=== PATIENT | female | born 1980 | race Two or more races ===

== ENCOUNTER 2021-05-22 08:51 | Emergency (ER) | payer OTHER ==
[~2021-05-22] VITALS: Ht 162.6 cm; Wt 90.9 kg
[2021-05-22 10:25] LABS: BASOPHILS % (AUTO) 0.2 % (0.0-2.0); EOSINOPHILS % (AUTO) 1.4 % (1.0-6.0); HEMATOCRIT 38.8 % (36-46); HEMOGLOBIN 12.8 g/dL (12.0-16.0); MEAN CORPUSCULAR HEMOGLOBIN 28.6 pg (26.0-34.0); MEAN CORPUSCULAR HGB CONC 32.9 G/dL (31.0-37.0); MEAN CORPUSCULAR VOLUME 87 fL (80-100); MONOCYTES # (AUTO) 0.6 K/uL (0.1-1.0); MONOCYTES % (AUTO) 9.9 % (2.0-9.0); NEUTROPHILS # (AUTO) 3.1 K/uL (1.8-7.7); NEUTROPHILS % (AUTO) 54.5 % (40.0-70.0); PLATELET COUNT (AUTO) 189 K/uL (150-450); RED BLOOD CELL COUNT(AUTO) 4.47 MIL/uL (4.00-5.20); RED CELL DISTRIBUTION WIDTH 14.6 % (11.5-14.5)
[2021-05-22 10:34] LABS: ANION GAP 11 mmol/L (8-16); CARBON DIOXIDE 25 mmol/L (22-29); CHLORIDE 101 mmol/L (98-107); GLOMERULAR FILTR. RATE CALC > 60 mL/min (>60); GLUCOSE,RANDOM 80 mg/dL (70-110); POTASSIUM 3.9 mmol/L (3.5-5.1); SODIUM SERUM 137 mmol/L (136-145); UREA NITROGEN, BLOOD 11 mg/dL (7-18)
[2021-05-22 10:40] LABS: ALANINE AMINOTRANSFERASE 28 U/L (12-78); ALBUMIN 3.7 g/dL (3.4-5.0); ALKALINE PHOSPHATASE 87 U/L (46-116); ASPARTATE AMINOTRANSFERASE 23 U/L (15-37); BILIRUBIN,TOTAL 0.4 mg/dL (0.1-1.0); TOTAL PROTEIN, SERUM 7.5 g/dL (6.4-8.2)
[2021-05-22 14:12] VITALS: BP 122/76
== END 2021-05-22 14:14 | disposition home or self-care (01) ==
LOC: EMS 08:58
DX: O26.891 Other specified pregnancy related conditions, first trimester (principal); R10.9 Unspecified abdominal pain; Z3A.01 Less than 8 weeks gestation of pregnancy
CPT/HCPCS: 76801; 80053; 85025; 99285

== ENCOUNTER 2021-06-25 19:13 | Emergency (ER) | payer OTHER ==
[~2021-06-25] VITALS: Ht 160 cm; Wt 91.8 kg
[2021-06-25 19:39] LABS: BASOPHILS % (AUTO) 0.5 % (0.0-2.0); EOSINOPHILS % (AUTO) 1.2 % (1.0-6.0); LYMPHOCYTES # (AUTO) 2.8 K/uL (1.0-4.8); LYMPHOCYTES % (AUTO) 36.6 % (22.0-44.0); MEAN CORPUSCULAR HEMOGLOBIN 28.3 pg (26.0-34.0); MEAN CORPUSCULAR HGB CONC 32.5 G/dL (31.0-37.0); MEAN CORPUSCULAR VOLUME 87 fL (80-100); MONOCYTES # (AUTO) 0.6 K/uL (0.1-1.0); MONOCYTES % (AUTO) 8.6 % (2.0-9.0); NEUTROPHILS % (AUTO) 53.1 % (40.0-70.0); PLATELET COUNT (AUTO) 209 K/uL (150-450)
[2021-06-25 19:49] LABS: CALCIUM, TOTAL 8.8 mg/dL (8.8-10.5); CREATININE 1.07 mg/dL (0.60-1.30); POTASSIUM 3.8 mmol/L (3.5-5.1)
[2021-06-25 19:54] LABS: ALBUMIN 3.9 g/dL (3.4-5.0); BILIRUBIN,TOTAL 0.2 mg/dL (0.1-1.0); TOTAL PROTEIN, SERUM 8.1 g/dL (6.4-8.2)
[2021-06-25 20:23] LABS: D-DIMER 0.38 mg/L FEU (0.00-0.50); PROTHROMBIN TIME 10.3 SEC (9.4-11.6)
[2021-06-25 20:32] LABS: APPEARANCE,URINE HAZY (CLEAR); BILIRUBIN,URINE NEGATIVE (NEGATIVE); GLUCOSE, URINE (UA) NEGATIVE (NEGATIVE); KETONES,URINE NEGATIVE (NEGATIVE); LEUKOCYTE ESTERASE ,URINE NEGATIVE (NEGATIVE); NITRATE,URINE NEGATIVE (NEGATIVE); OCCULT BLOOD,URINE NEGATIVE (NEGATIVE); PH,URINE 5.5 (5.0-8.0); PROTEIN,URINE NEGATIVE (NEGATIVE); SPECIFIC GRAVITIY, URINE 1.023 (1.003-1.030); UROBILINOGEN,URINE <=1.0 mg/dL (<=1.0)
[2021-06-25] MEDS ORDERED: SODIUM CHLORIDE 0.9% 1,000 ML IV ONE (20:45)
[2021-06-25 22:13] VITALS: BP 138/72
== END 2021-06-25 22:00 | disposition home or self-care (01) ==
LOC: EMS 19:14
DX: O99.281 Endocrine, nutritional and metabolic diseases complicating pregnancy, first trimester (principal); O26.891 Other specified pregnancy related conditions, first trimester; E86.0 Dehydration; R42 Dizziness and giddiness; Z3A.11 11 weeks gestation of pregnancy
CPT/HCPCS: 36415; 71045; 80053; 81003; 82550; 83880; 84484; 84703; 85025; 85379; 85610; 85730; 93005; 96360; 99285; J7030

== ENCOUNTER 2021-07-05 18:12 | Emergency (ER) | payer OTHER ==
[~2021-07-05] VITALS: Ht 164.8 cm; Wt 91.8 kg
[2021-07-05] MEDS ORDERED: IBUP-2070 PO (18:58)
[2021-07-05] MEDS ORDERED: ACET-3385 PO (18:58)
[2021-07-05] MEDS ORDERED: AMOX1TAB16 PO (18:58)
[2021-07-05] MEDS ORDERED: ACETAMINOPHEN 500 MG TABLET PO ONE (19:00)
[2021-07-05] MEDS ORDERED: KETOROLAC TROMETHAMINE 30 MG/ML VIAL IM ONE (19:00)
[2021-07-05] MEDS ORDERED: AMOX TR/POT CLAV 875 MG/125 MG TABLET PO ONE (19:00)
[2021-07-05 19:45] VITALS: BP 139/82
== END 2021-07-05 20:00 | disposition home or self-care (01) ==
LOC: EMS 18:19
DX: K08.89 Other specified disorders of teeth and supporting structures (principal); Z79.899 Other long term (current) drug therapy
CPT/HCPCS: 96372; 99283; J1885

== ENCOUNTER 2021-10-30 16:49 | Emergency (ER) | payer OTHER ==
[~2021-10-30 16:49] MED LIST: ACET-3385 PO; AMOX1TAB16 PO; IBUP-2070 PO
== END 2021-10-30 19:17 | disposition left against medical advice (07) ==
LOC: EMS 17:50
DX: Z53.21 Procedure and treatment not carried out due to patient leaving prior to being seen by health care provider (principal)

== ENCOUNTER 2021-12-28 10:13 | Emergency (ER) | payer OTHER ==
[~2021-12-28] VITALS: Ht 167.6 cm; Wt 86.4 kg
[2021-12-28] MEDS ORDERED: IBUPROFEN 600 MG TABLET PO ONE (12:15)
[2021-12-28 12:59] VITALS: BP 133/88
[2021-12-28] MEDS ORDERED: NAPR-1025 PO (13:07)
== END 2021-12-28 13:45 | disposition home or self-care (01) ==
LOC: EMS 10:29
DX: M77.32 Calcaneal spur, left foot (principal); M77.31 Calcaneal spur, right foot
CPT/HCPCS: 99283

== ENCOUNTER 2022-09-13 20:21 | Emergency (ER) | payer OTHER ==
[~2022-09-13] VITALS: Ht 172.7 cm; Wt 100.0 kg
[~2022-09-13 20:21] MED LIST changes: -AMOX1TAB16 PO; +IBUP-1492 PO; -IBUP-2070 PO; +NAPR-1025 PO
[2022-09-13 21:06] LABS: BASOPHILS % (AUTO) 0.4 % (0.0-2.0); EOSINOPHILS % (AUTO) 1.6 % (1.0-6.0); HEMATOCRIT 39.5 % (36-46); HEMOGLOBIN 12.8 g/dL (12.0-16.0); LYMPHOCYTES # (AUTO) 2.9 K/uL (1.0-4.8); LYMPHOCYTES % (AUTO) 33.5 % (22.0-44.0); MEAN CORPUSCULAR HEMOGLOBIN 28.7 pg (26.0-34.0); MEAN CORPUSCULAR HGB CONC 32.5 G/dL (31.0-37.0); MEAN CORPUSCULAR VOLUME 88 fL (80-100); MONOCYTES # (AUTO) 0.7 K/uL (0.1-1.0); MONOCYTES % (AUTO) 7.6 % (2.0-9.0); NEUTROPHILS % (AUTO) 56.9 % (40.0-70.0); PLATELET COUNT (AUTO) 213 K/uL (150-450); RED BLOOD CELL COUNT(AUTO) 4.48 MIL/uL (4.00-5.20); RED CELL DISTRIBUTION WIDTH 14.4 % (11.5-14.5)
[2022-09-13 21:18] LABS: ANION GAP 9 mmol/L (8-16); CALCIUM, TOTAL 8.7 mg/dL (8.8-10.5); CARBON DIOXIDE 27 mmol/L (22-29); CHLORIDE 104 mmol/L (98-107); CREATININE 0.88 mg/dL (0.60-1.30); GLOMERULAR FILTR. RATE CALC > 60 mL/min (>60); GLUCOSE,RANDOM 110 mg/dL (70-110); POTASSIUM 3.9 mmol/L (3.5-5.1); SODIUM SERUM 140 mmol/L (136-145)
[2022-09-13 21:24] LABS: ALANINE AMINOTRANSFERASE 19 U/L (12-78); ALBUMIN 3.5 g/dL (3.4-5.0); ALKALINE PHOSPHATASE 109 U/L (46-116); ASPARTATE AMINOTRANSFERASE 21 U/L (15-37); BILIRUBIN,TOTAL 0.1 mg/dL (0.1-1.0); LIPASE 165 U/L (73-393); TOTAL PROTEIN, SERUM 7.5 g/dL (6.4-8.2)
[2022-09-13 21:27] LABS: APPEARANCE,URINE CLEAR (CLEAR); BILIRUBIN,URINE NEGATIVE (NEGATIVE); GLUCOSE, URINE (UA) NEGATIVE (NEGATIVE); KETONES,URINE NEGATIVE (NEGATIVE); LEUKOCYTE ESTERASE ,URINE NEGATIVE (NEGATIVE); NITRATE,URINE NEGATIVE (NEGATIVE); OCCULT BLOOD,URINE NEGATIVE (NEGATIVE); PROTEIN,URINE NEGATIVE (NEGATIVE); UROBILINOGEN,URINE <=1.0 mg/dL (<=1.0)
[2022-09-13] MEDS ORDERED: MAG30ORA11 PO (22:22)
[2022-09-13] MEDS ORDERED: ACET-66 PO (22:22)
[2022-09-13] MEDS ORDERED: ACETAMINOPHEN 500 MG TABLET PO ONE (22:30)
[2022-09-13] MEDS ORDERED: MAG HYDROX/AL HYDROX/SIMETH ES 30 ML SUSPENSION UDCUP PO ONE (22:30)
[2022-09-13 22:32] VITALS: BP 126/77
== END 2022-09-13 22:32 | disposition home or self-care (01) ==
LOC: EMS 20:22
DX: K52.9 Noninfective gastroenteritis and colitis, unspecified (principal); Z98.890 Other specified postprocedural states
CPT/HCPCS: 80053; 81003; 83690; 84703; 85025; 99283

== ENCOUNTER 2023-04-22 19:42 | Emergency (ER) | payer OTHER ==
[~2023-04-22] VITALS: Ht 157.5 cm; Wt 97.7 kg
[~2023-04-22 19:42] MED LIST changes: +ACET-66 PO; +MAG30ORA11 PO
[2023-04-22] MEDS ORDERED: KETOROLAC TROMETHAMINE 30 MG/ML VIAL IVP ONE (23:45)
[2023-04-22] MEDS ORDERED: SODIUM CHLORIDE 0.9% 1,000 ML IV ONE (23:45)
[2023-04-22] MEDS ORDERED: ONDANSETRON HCL 4 MG/2 ML VIAL IVP ONE (23:45)
[2023-04-23 01:05] LABS: COVID AG,FIA SOURCE NASAL SWAB
[2023-04-23 01:33] LABS: APPEARANCE,URINE CLEAR (CLEAR); BILIRUBIN,URINE NEGATIVE (NEGATIVE); COLOR,URINE COLORLESS (YELLOW); GLUCOSE, URINE (UA) NEGATIVE (NEGATIVE); KETONES,URINE NEGATIVE (NEGATIVE); LEUKOCYTE ESTERASE ,URINE NEGATIVE (NEGATIVE); NITRATE,URINE NEGATIVE (NEGATIVE); OCCULT BLOOD,URINE TRACE (NEGATIVE); PH,URINE 5.5 (5.0-8.0); PROTEIN,URINE NEGATIVE (NEGATIVE); SPECIFIC GRAVITIY, URINE 1.017 (1.003-1.030); UROBILINOGEN,URINE <=1.0 mg/dL (<=1.0)
[2023-04-23 01:36] LABS: SARS-COV2 (COVID) ANTIGEN,FIA Negative (Negative)
[2023-04-23 01:37] LABS: INFLUENZA TYPE A NEGATIVE FOR TYPE A (NEGATIVE); INFLUENZA TYPE B NEGATIVE FOR TYPE B (NEGATIVE)
[2023-04-23 01:43] LABS: BASOPHILS % (AUTO) 0.4 % (0.0-2.0); EOSINOPHILS % (AUTO) 2.7 % (1.0-6.0); HEMATOCRIT 38.6 % (36-46); HEMOGLOBIN 12.7 g/dL (12.0-16.0); LYMPHOCYTES # (AUTO) 3.1 K/uL (1.0-4.8); LYMPHOCYTES % (AUTO) 35.3 % (22.0-44.0); MEAN CORPUSCULAR HEMOGLOBIN 28.6 pg (26.0-34.0); MEAN CORPUSCULAR HGB CONC 32.9 G/dL (31.0-37.0); MEAN CORPUSCULAR VOLUME 87 fL (80-100); MONOCYTES # (AUTO) 0.7 K/uL (0.1-1.0); MONOCYTES % (AUTO) 8.3 % (2.0-9.0); NEUTROPHILS # (AUTO) 4.7 K/uL (1.8-7.7); NEUTROPHILS % (AUTO) 53.3 % (40.0-70.0); PLATELET COUNT (AUTO) 239 K/uL (150-450); RED BLOOD CELL COUNT(AUTO) 4.44 MIL/uL (4.00-5.20); RED CELL DISTRIBUTION WIDTH 14.5 % (11.5-14.5); WHITE BLOOD COUNT (AUTO) 8.9 K/uL (4.5-11.0)
[2023-04-23 01:44] LABS: RESPIRATORY SYNCYTIAL VIRS,FIA NEGATIVE (Negative)
[2023-04-23 01:54] LABS: ANION GAP 9 mmol/L (8-16); CALCIUM, TOTAL 9.2 mg/dL (8.8-10.5); CARBON DIOXIDE 28 mmol/L (22-29); CHLORIDE 99 mmol/L (98-107); GLOMERULAR FILTR. RATE CALC > 60 mL/min (>60); GLUCOSE,RANDOM 81 mg/dL (70-110); POTASSIUM 3.8 mmol/L (3.5-5.1); SODIUM SERUM 136 mmol/L (136-145); UREA NITROGEN, BLOOD 13 mg/dL (7-18)
[2023-04-23 01:59] LABS: BACTERIA,URINE None Seen /HPF (None Seen); RBC,URINE 0-2 /HPF (0-2); SQUAMOUS EPITHELIAL CELL,UR Rare /LPF (None Seen); WBC,URINE None Seen /HPF (0-5)
[2023-04-23 02:01] LABS: ALANINE AMINOTRANSFERASE 23 U/L (12-78); ALBUMIN 4.1 g/dL (3.4-5.0); ALKALINE PHOSPHATASE 142 U/L (46-116); ASPARTATE AMINOTRANSFERASE 23 U/L (15-37); BILIRUBIN,TOTAL 0.2 mg/dL (0.1-1.0); LIPASE 75 U/L (16-77); TOTAL PROTEIN, SERUM 8.2 g/dL (6.4-8.2); TROPONIN I-HIGH SENSITIVITY 8 ng/L (<51)
[2023-04-23] MEDS ORDERED: PANT-31 PO (02:33)
[2023-04-23 02:40] VITALS: BP 116/66; PULSE 78; RESP 16; TEMP 98.4
[2023-04-23] MEDS ORDERED: BENZ-227 PO (02:47)
== END 2023-04-23 02:55 | disposition home or self-care (01) ==
LOC: EMS 20:38
DX: R10.11 Right upper quadrant pain (principal); Z20.822 Contact with and (suspected) exposure to COVID-19; Z98.890 Other specified postprocedural states
CPT/HCPCS: 99285; 76700; 71045; 87426; 80053; 81001; 83690; 87420; 84484; 84703; 85025; 87804; 36415; 93005; 96374; 96361; 96375; J1885; J2405; J7030

== ENCOUNTER 2024-06-28 22:32 | Emergency (ER) | payer SELFPAY ==
[~2024-06-28] VITALS: Ht 172.7 cm; Wt 81.8 kg
[~2024-06-28 22:32] MED LIST changes: -ACET-66 PO; +AMLO-257 PO; +BENZ-227 PO; +BENZ1LOZ50 PO; +GUAIF600 PO; -IBUP-1492 PO; +LEVO750T68 PO; -NAPR-1025 PO; +PANT-31 PO; +PRED-729 PO
[2024-06-28 22:41] VITALS: BP 126/88; PULSE 77; RESP 20; TEMP 98; O2SAT 98
[2024-06-28] MEDS ORDERED: ACETAMINOPHEN/CODEINE 300-30 MG TABLET PO ONE (23:00)
[2024-06-28] MEDS ORDERED: IBUPROFEN 600 MG TABLET PO ONE (23:00)
== END 2024-06-29 04:11 | disposition home or self-care (01) ==
LOC: EMS 22:32
DX: M54.6 Pain in thoracic spine (principal); Z79.899 Other long term (current) drug therapy; Z79.52 Long term (current) use of systemic steroids; V89.2XXA Person injured in unspecified motor-vehicle accident, traffic, initial encounter; Y93.89 Activity, other specified; Y92.89 Other specified places as the place of occurrence of the external cause; Y99.8 Other external cause status
CPT/HCPCS: 72040; 72070; 99284; Z7502